=== PATIENT | male | born 1995 | race Caucasian/White ===

== ENCOUNTER 2018-11-12 16:01 | Emergency (ER) | payer OTHER ==
[~2018-11-12] VITALS: Ht 172.7 cm; Wt 106.5 kg
[2018-11-12 16:12] VITALS: BP 144/74
[2018-11-12] MEDS ORDERED: METHOCARBAMOL 750 MG TABLET PO ONE (16:30)
[2018-11-12] MEDS ORDERED: KETOROLAC 30 MG/1 ML IM ONE (16:30)
[2018-11-12] MEDS ORDERED: METHOCARBAMOL 750 MG TABLET ONE (17:11)
[2018-11-12] MEDS ORDERED: KETOROLAC 30 MG/1 ML ONE (17:11)
== END 2018-11-12 17:23 | disposition home or self-care (01) ==
LOC: ED 16:55
DX: G89.29 Other chronic pain (principal); M25.511 Pain in right shoulder
CPT/HCPCS: 72050; 99283